=== PATIENT | male | born 1985 | race Caucasian/White ===

== ENCOUNTER → 2018-11-24 | Outpatient (CLI) | payer OTHER ==
[2018-11-24 14:49] LABS: PLATELET COUNT, AUTOMATED 58 K/uL (150-450)
== END ==
LOC: LAB 14:13
PROVIDERS: ATTEND Orthopaedic Surgery Hand Surgery
DX: M25.642 Stiffness of left hand, not elsewhere classified (principal)
CPT/HCPCS: 36415; 84550; 85025; 85651; 86038; 86140; 86430